=== PATIENT | male | born 1945 | race Caucasian/White ===

== ENCOUNTER → 2017-09-26 | Outpatient (CLI) | payer MEDICARE, BC ==
[~2017-09-26] MED LIST: ASPI325 PO; ATOR20 PO; Ativan1 MG SL; BIMA.03OPS OD; BUTRANS1 EAC1 TD; BYDUREON P2 MG/0.65 SC; Bactrim Ds Tab1 EACH PO; CEPH500 PO; Coenzyme Q10200 M2 PO; DOCU100 PO; DONE10 PO; DULO30 PO; DULO60 PO; ELIQUIS5 MG PO; ENAL20 PO; ERGO50000 PO; FENOFIBRIC ACI135 MG PO; FISH1000 PO; FLUD.1 PO; FLUO10 PO; FLUO20 PO; Fluoxetine HCl20 M1 PO; HYDACE10B PO; HYDMETSO BOTHEYES; INSU100I6 SC; LAMICTAL XR200 MG PO; LAMO100 PO; LATA.005SO BOTHEYES; LAVAP17G PO; LEVEMIR FL100 UNIT/1 SC; LEVFLO500 PO; LORA1 PO; LOSA50 PO; LOVA40 PO; METF500 PO; METFORMIN HCL1000 MG PO; METO100ER PO; METO25ER; NYST100SU; Novolog Fl100 UNIT/1 SC; OXYC10TA19 PO; POTA10T PO; PROBIOTIC250 MG PO; PROP60 PO; PROP80ER PO; Prozac20 MG PO; ROSU10TA PO; TOUJEO SOL300 UNIT/1 SC; VITAMIN D35000 UNIT PO; Zyprexa15 MG PO
[2017-09-26 17:04] LABS: BASOPHILS ABSOLUTE AUTO 0.09 K/mm3 (0.00-0.23); BASOPHILS PERCENT AUTO 1 % (0-2); EOSINOPHILS ABSOLUTE AUTO 1.32 K/mm3 (0.00-0.68); EOSINOPHILS PERCENT AUTO 13 % (0-6); Hematocrit 41.7 % (37.0-53.0); Hemoglobin 13.9 g/dL (13.5-17.5); IMMATURE GRAN PERCENT AUTO 1 % (0-1); LYMPHOCYTES ABSOLUTE AUTO 3.84 K/mm3 (0.84-5.20); LYMPHOCYTES PERCENT AUTO 37 % (21-46); MONOCYTES ABSOLUTE AUTO 0.81 K/mm3 (0.16-1.47); MONOCYTES PERCENT AUTO 8 % (4-13); Mean Corpuscular HGB 30.8 pg (26.0-34.0); Mean Corpuscular HGB Conc 33.3 g/dL (31.5-36.5); Mean Corpuscular Volume 92 fL (80-100); Mean Platelet Volume 8.5 fL (9.1-12.4); NEUTROPHILS ABSOLUTE AUTO 4.24 K/mm3 (1.96-9.15); NEUTROPHILS PERCENT AUTO 41 % (41-73); Platelet Count 410 K/mm3 (150-400); RDW Coefficient Variation 13.8 % (11.7-14.2); RDW Standard Deviation 47.1 fL (35.1-46.3); Red Blood Cell Count 4.52 M/mm3 (4.30-5.90)
[2017-09-26 17:14] LABS: Alanine Aminotransfer (ALT/SGP 45 U/L (12-78); Albumin, Blood 3.6 g/dL (3.4-5.0); Albumin/Globulin Ratio 0.9 (0.8-1.8); Alk Phos 32 U/L (40-126); Anion Gap 8 mmol/L (6-16); Aspartate Aminotrans (AST/SGOT 45 U/L (12-37); Bilirubin, Total 0.3 mg/dL (0.1-1.0); Blood Urea Nitrogen 19 mg/dL (8-24); Bun/Creatinine Ratio 17.4 (12.0-20.0); CO2, Blood 24 mmol/L (21-32); Calcium, Blood 9.3 mg/dL (8.5-10.1); Chloride, Blood 107 mmol/L (98-108); Creatinine, Blood 1.09 mg/dL (0.60-1.20); Globulin, Blood 3.9 g/dL (2.2-4.0); Glomerular Filtration Rate >60 (60-); Glucose, Blood 170 mg/dL (70-99); Potassium, Blood 4.7 mmol/L (3.5-5.5); Sodium, Blood 139 mmol/L (136-145); Total Protein, Blood 7.5 g/dL (6.4-8.2)
== END | disposition home or self-care (01) ==
LOC: LAB SHORT 16:58 → LAB EV 16:58
PROVIDERS: Physician Assistant
DX: E11.9 Type 2 diabetes mellitus without complications (principal); R60.0 Localized edema
CPT/HCPCS: 80053; 83880; 85025

== ENCOUNTER 2017-11-24 12:01 | Inpatient (IN) | payer MEDICARE, BC ==
[~2017-11-24] VITALS: Ht 177.8 cm; Wt 101.4 kg
[~2017-11-24 12:01] MED LIST changes: -BYDUREON P2 MG/0.65 SC; -Bactrim Ds Tab1 EACH PO; -CEPH500 PO; -ELIQUIS5 MG PO; -LEVFLO500 PO; -LORA1 PO; -PROBIOTIC250 MG PO; -TOUJEO SOL300 UNIT/1 SC
[2017-11-24] MEDS ORDERED: BYDUREON P2 MG/0.65 SC (12:18)
[2017-11-24] MEDS ORDERED: LORA1 PO (12:20)
[2017-11-24] MEDS ORDERED: LEVFLO500 PO (12:22)
[2017-11-24] MEDS ORDERED: Bactrim Ds Tab1 EACH PO (12:22)
[2017-11-24] MEDS ORDERED: TOUJEO SOL300 UNIT/1 SC (12:31)
[2017-11-24 13:02] LABS: BASOPHILS ABSOLUTE AUTO 0.07 K/mm3 (0.00-0.23); BASOPHILS PERCENT AUTO 1 % (0-2); EOSINOPHILS ABSOLUTE AUTO 0.43 K/mm3 (0.00-0.68); EOSINOPHILS PERCENT AUTO 4 % (0-6); Hemoglobin 13.2 g/dL (13.5-17.5); IMMATURE GRAN ABSOLUTE AUTO 0.07 K/mm3 (0.00-0.10); IMMATURE GRAN PERCENT AUTO 1 % (0-1); LYMPHOCYTES ABSOLUTE AUTO 2.69 K/mm3 (0.84-5.20); LYMPHOCYTES PERCENT AUTO 22 % (21-46); MONOCYTES ABSOLUTE AUTO 1.04 K/mm3 (0.16-1.47); MONOCYTES PERCENT AUTO 8 % (4-13); Mean Corpuscular HGB 30.6 pg (26.0-34.0); Mean Corpuscular HGB Conc 33.8 g/dL (31.5-36.5); Mean Corpuscular Volume 91 fL (80-100); Mean Platelet Volume 8.5 fL (9.1-12.4); NEUTROPHILS ABSOLUTE AUTO 8.15 K/mm3 (1.96-9.15); NEUTROPHILS PERCENT AUTO 65 % (41-73); Platelet Count 301 K/mm3 (150-400); RDW Coefficient Variation 12.6 % (11.7-14.2); RDW Standard Deviation 41.9 fL (35.1-46.3); Red Blood Cell Count 4.31 M/mm3 (4.30-5.90); White Blood Cell Count 12.45 K/mm3 (4.00-11.30)
[2017-11-24 13:18] LABS: Alanine Aminotransfer (ALT/SGP 39 U/L (12-78); Albumin, Blood 3.1 g/dL (3.4-5.0); Albumin/Globulin Ratio 0.7 (0.8-1.8); Alk Phos 30 U/L (50-136); Anion Gap 10 mmol/L (6-16); Aspartate Aminotrans (AST/SGOT 23 U/L (12-37); Bilirubin, Total 0.2 mg/dL (0.1-1.0); Blood Urea Nitrogen 15 mg/dL (8-24); Bun/Creatinine Ratio 15.1 (12.0-20.0); CO2, Blood 21 mmol/L (21-32); Calcium, Blood 9.1 mg/dL (8.5-10.1); Chloride, Blood 105 mmol/L (98-108); Globulin, Blood 4.2 g/dL (2.2-4.0); Glomerular Filtration Rate >60 (60-); Glucose, Blood 219 mg/dL (70-99); Potassium, Blood 4.3 mmol/L (3.5-5.5); Sodium, Blood 136 mmol/L (136-145); Total Protein, Blood 7.3 g/dL (6.4-8.2)
[2017-11-25 05:59] LABS: BASOPHILS ABSOLUTE AUTO 0.07 K/mm3 (0.00-0.23); BASOPHILS PERCENT AUTO 1 % (0-2); EOSINOPHILS ABSOLUTE AUTO 0.75 K/mm3 (0.00-0.68); EOSINOPHILS PERCENT AUTO 8 % (0-6); Hematocrit 37.4 % (37.0-53.0); Hemoglobin 12.5 g/dL (13.5-17.5); IMMATURE GRAN ABSOLUTE AUTO 0.13 K/mm3 (0.00-0.10); IMMATURE GRAN PERCENT AUTO 1 % (0-1); LYMPHOCYTES PERCENT AUTO 32 % (21-46); MONOCYTES PERCENT AUTO 9 % (4-13); Mean Corpuscular HGB 30.2 pg (26.0-34.0); Mean Corpuscular HGB Conc 33.4 g/dL (31.5-36.5); Mean Corpuscular Volume 90 fL (80-100); Mean Platelet Volume 8.6 fL (9.1-12.4); NEUTROPHILS ABSOLUTE AUTO 4.53 K/mm3 (1.96-9.15); NEUTROPHILS PERCENT AUTO 49 % (41-73); Platelet Count 304 K/mm3 (150-400); RDW Coefficient Variation 12.7 % (11.7-14.2); RDW Standard Deviation 41.8 fL (35.1-46.3); Red Blood Cell Count 4.14 M/mm3 (4.30-5.90); White Blood Cell Count 9.18 K/mm3 (4.00-11.30)
[2017-11-25 06:20] LABS: Alanine Aminotransfer (ALT/SGP 30 U/L (12-78); Albumin, Blood 3.1 g/dL (3.4-5.0); Albumin/Globulin Ratio 0.8 (0.8-1.8); Alk Phos 26 U/L (50-136); Anion Gap 10 mmol/L (6-16); Aspartate Aminotrans (AST/SGOT 22 U/L (12-37); Bilirubin, Total 0.3 mg/dL (0.1-1.0); Blood Urea Nitrogen 12 mg/dL (8-24); Bun/Creatinine Ratio 12.1 (12.0-20.0); CO2, Blood 23 mmol/L (21-32); CPK Creatine Kinase 182 U/L (39-308); Calcium, Blood 8.7 mg/dL (8.5-10.1); Chloride, Blood 106 mmol/L (98-108); Creatinine, Blood 0.99 mg/dL (0.60-1.20); Globulin, Blood 3.8 g/dL (2.2-4.0); Glomerular Filtration Rate >60 (60-); Glucose, Blood 134 mg/dL (70-99); Magnesium, Blood 1.8 mg/dL (1.6-2.4); Phosphorus, Blood 3.7 mg/dL (2.5-4.9); Sodium, Blood 139 mmol/L (136-145); Total Protein, Blood 6.9 g/dL (6.4-8.2)
[2017-11-25 19:46] LABS: Vancomycin, Trough 11.7 ug/mL (5.0-10.0)
[2017-11-26] MEDS ORDERED: DOCU100 PO (15:49)
[2017-11-26] MEDS ORDERED: CEPH500 PO (15:50)
[2017-11-26] MEDS ORDERED: ELIQUIS5 MG PO (15:51)
[2017-11-26] MEDS ORDERED: PROBIOTIC250 MG PO (15:51)
== END 2017-11-26 16:23 | disposition home or self-care (01) | DRG 872 ==
LOC: ER 12:01 → MEDS 15:32
PROVIDERS: Emergency Medicine; Hospitalist
PROC: 3E0234Z Introduction of Serum, Toxoid and Vaccine into Muscle, Percutaneous Approach (ICD-10-PCS; principal; 2017-11-25)
DX: A41.9 Sepsis, unspecified organism (principal); L03.115 Cellulitis of right lower limb; G21.19 Other drug induced secondary parkinsonism; I74.5 Embolism and thrombosis of iliac artery; I72.3 Aneurysm of iliac artery; R60.0 Localized edema; E11.9 Type 2 diabetes mellitus without complications; E78.5 Hyperlipidemia, unspecified; F31.9 Bipolar disorder, unspecified; G47.33 Obstructive sleep apnea (adult) (pediatric); I10 Essential (primary) hypertension; Z66 Do not resuscitate; E66.9 Obesity, unspecified; Z68.34 Body mass index [BMI] 34.0-34.9, adult; Z23 Encounter for immunization
CPT/HCPCS: 36415; 71046; 73630; 73701; 74177; 80053; 80202; 82550; 82947; 83605; 83735; 84100; 85025; 85651; 86140; 87040; 93005; 93010; 96361; 96374; 96375; 97161; 99285; G8978; G8979; G8980; J0690; J1650; J1815; J2405; J3010; J3370; J7030; J7050; Q9967

== ENCOUNTER → 2018-01-12 | Outpatient (CLI) | payer MEDICARE, BC ==
[~2018-01-12] MED LIST changes: +BYDUREON P2 MG/0.65 SC; +Bactrim Ds Tab1 EACH PO; +CEPH500 PO; +ELIQUIS5 MG PO; +LEVFLO500 PO; +LORA1 PO; +PROBIOTIC250 MG PO; +TOUJEO SOL300 UNIT/1 SC
[2018-01-12 12:24] LABS: BASOPHILS ABSOLUTE AUTO 0.07 K/mm3 (0.00-0.23); BASOPHILS PERCENT AUTO 1 % (0-2); EOSINOPHILS ABSOLUTE AUTO 1.02 K/mm3 (0.00-0.68); EOSINOPHILS PERCENT AUTO 12 % (0-6); Hematocrit 42.3 % (37.0-53.0); Hemoglobin 14.2 g/dL (13.5-17.5); IMMATURE GRAN ABSOLUTE AUTO 0.05 K/mm3 (0.00-0.10); IMMATURE GRAN PERCENT AUTO 1 % (0-1); LYMPHOCYTES ABSOLUTE AUTO 3.13 K/mm3 (0.84-5.20); LYMPHOCYTES PERCENT AUTO 36 % (21-46); MONOCYTES ABSOLUTE AUTO 0.56 K/mm3 (0.16-1.47); MONOCYTES PERCENT AUTO 6 % (4-13); Mean Corpuscular HGB 30.2 pg (26.0-34.0); Mean Corpuscular HGB Conc 33.6 g/dL (31.5-36.5); Mean Corpuscular Volume 90 fL (80-100); Mean Platelet Volume 8.6 fL (9.1-12.4); NEUTROPHILS ABSOLUTE AUTO 3.92 K/mm3 (1.96-9.15); NEUTROPHILS PERCENT AUTO 45 % (41-73); Platelet Count 344 K/mm3 (150-400); RDW Coefficient Variation 12.9 % (11.7-14.2); RDW Standard Deviation 42.7 fL (35.1-46.3); White Blood Cell Count 8.75 K/mm3 (4.00-11.30)
[2018-01-12 12:36] LABS: Albumin, Blood 3.7 g/dL (3.4-5.0); Bilirubin, Total 0.3 mg/dL (0.1-1.0); Bun/Creatinine Ratio 13.6 (12.0-20.0); Calcium, Blood 9.1 mg/dL (8.5-10.1); Creatinine, Blood 1.25 mg/dL (0.60-1.20); Globulin, Blood 3.7 g/dL (2.2-4.0); Potassium, Blood 4.5 mmol/L (3.5-5.5); Total Protein, Blood 7.4 g/dL (6.4-8.2)
== END ==
LOC: LAB SHORT 12:15 → LAB EV 12:15
PROVIDERS: General Practice
DX: L29.9 Pruritus, unspecified (principal)
CPT/HCPCS: 80053; 85025

== ENCOUNTER 2019-03-17 20:51 | Emergency (ER) | payer MEDICARE, BC ==
[~2019-03-17] VITALS: Ht 177.8 cm; Wt 117.9 kg
[2019-03-17 21:50] LABS: BASOPHILS PERCENT AUTO 1 % (0-2); EOSINOPHILS ABSOLUTE AUTO 0.89 K/mm3 (0.00-0.68); EOSINOPHILS PERCENT AUTO 8 % (0-6); Hemoglobin 15.2 g/dL (13.5-17.5); IMMATURE GRAN ABSOLUTE AUTO 0.22 K/mm3 (0.00-0.10); IMMATURE GRAN PERCENT AUTO 2 % (0-1); LYMPHOCYTES ABSOLUTE AUTO 4.13 K/mm3 (0.84-5.20); LYMPHOCYTES PERCENT AUTO 36 % (21-46); MONOCYTES ABSOLUTE AUTO 0.78 K/mm3 (0.16-1.47); MONOCYTES PERCENT AUTO 7 % (4-13); Mean Corpuscular HGB Conc 32.3 g/dL (31.5-36.5); Mean Corpuscular Volume 93 fL (80-100); Mean Platelet Volume 8.7 fL (9.1-12.4); NEUTROPHILS ABSOLUTE AUTO 5.24 K/mm3 (1.96-9.15); NEUTROPHILS PERCENT AUTO 46 % (41-73); Platelet Count 346 K/mm3 (150-400); RDW Coefficient Variation 12.9 % (11.7-14.2); RDW Standard Deviation 44.1 fL (35.1-46.3); Red Blood Cell Count 5.06 M/mm3 (4.30-5.90); White Blood Cell Count 11.36 K/mm3 (4.00-11.30)
[2019-03-17 22:10] LABS: Alanine Aminotransfer (ALT/SGP 60 U/L (12-78); Albumin, Blood 3.8 g/dL (3.4-5.0); Albumin/Globulin Ratio 0.8 (0.8-1.8); Alk Phos 39 U/L (50-136); Anion Gap 9 mmol/L (6-16); Aspartate Aminotrans (AST/SGOT 53 U/L (12-37); Bilirubin, Total 0.2 mg/dL (0.1-1.0); Blood Urea Nitrogen 20 mg/dL (8-24); Bun/Creatinine Ratio 19.6 (12.0-20.0); CO2, Blood 25 mmol/L (21-32); Calcium, Blood 9.4 mg/dL (8.5-10.1); Chloride, Blood 102 mmol/L (98-108); Creatinine, Blood 1.02 mg/dL (0.60-1.20); Globulin, Blood 4.6 g/dL (2.2-4.0); Glomerular Filtration Rate >60 (60-); Glucose, Blood 265 mg/dL (70-99); Potassium, Blood 4.1 mmol/L (3.5-5.5); Sodium, Blood 136 mmol/L (136-145); Total Protein, Blood 8.4 g/dL (6.4-8.2)
== END 2019-03-17 23:29 | disposition home or self-care (01) ==
LOC: ER 20:51
PROVIDERS: Physician Assistant
DX: K59.00 Constipation, unspecified (principal); Z79.899 Other long term (current) drug therapy; Z79.4 Long term (current) use of insulin; F31.9 Bipolar disorder, unspecified; E11.9 Type 2 diabetes mellitus without complications; I10 Essential (primary) hypertension; E78.5 Hyperlipidemia, unspecified
CPT/HCPCS: 74176; 80053; 83690; 85025; 99284-25

== ENCOUNTER 2019-07-29 09:15 | Day surgery (SDC) | payer MEDICARE, BC ==
[~2019-07-29] VITALS: Ht 177.8 cm; Wt 115.1 kg
[~2019-07-29 09:15] MED LIST changes: +AMIT50 PO; +ARTIFICIAL TEAR15 M2 OP; +Ativan1 MG PO; +BYDUREON B2 MG/0.85 SC; +FLUTICASONE-SA1 EAC1; +FURO40 PO; +Fish Oil 10001000 MG PO; +JARDIANCE10 MG PO; +K-TAB ER20 ME1 PO; +LATANOPROST2.5 M1 BOTHEYES; +Lipitor20 MG PO; +Metformin HCl1000 MG PO; +NOVOLOG100 UNIT/1 SC; +OLAN20 MM; +OXYC10ER PO; +TAMS.4ER PO; +TEMOVATE15 G1; +TOUJEO MAX300 UNIT/1 SC
== END 2019-07-29 11:52 | disposition home or self-care (01) ==
LOC: ORSCSDS 09:15
PROVIDERS: Internal Medicine Gastroenterology
PROC: 0DBL8ZX Excision of Transverse Colon, Via Natural or Artificial Opening Endoscopic, Diagnostic (ICD-10-PCS; principal; 2019-07-29 10:30)
PROC: 0DBK8ZX Excision of Ascending Colon, Via Natural or Artificial Opening Endoscopic, Diagnostic (ICD-10-PCS; principal; 2019-07-29 10:30)
DX: Z12.11 Encounter for screening for malignant neoplasm of colon (principal); Z86.010 Personal history of colon polyps; D12.2 Benign neoplasm of ascending colon; D12.3 Benign neoplasm of transverse colon; K57.30 Diverticulosis of large intestine without perforation or abscess without bleeding; K64.8 Other hemorrhoids; I10 Essential (primary) hypertension; E11.9 Type 2 diabetes mellitus without complications; G47.33 Obstructive sleep apnea (adult) (pediatric); E78.5 Hyperlipidemia, unspecified; E66.01 Morbid (severe) obesity due to excess calories; Z68.36 Body mass index [BMI] 36.0-36.9, adult; Z79.4 Long term (current) use of insulin; Z79.899 Other long term (current) drug therapy; Z87.891 Personal history of nicotine dependence
CPT/HCPCS: 82947; 88305; J2704

== ENCOUNTER → 2020-09-08 | Outpatient (CLI) | payer MEDICARE, BC ==
[~2020-09-08] MED LIST changes: +ARTIFICIAL TEAR15 M2 BOTHEYES; +FENO145 PO; +FENO67 PO; +GABA300 PO; +METAMUCIL POWD575 GM PO; +MIRALAX17 GM PO; -Metformin HCl1000 MG PO; +NYAMYC15 G1 TOP; +POTCHL20ER PO; +TRULICITY1.5 MG/0.1 SC; +VRAYLAR1.5 MG PO
[2020-09-08 15:31] LABS: BASOPHILS ABSOLUTE AUTO 0.04 K/mm3 (0.00-0.23); BASOPHILS PERCENT AUTO 0 % (0-2); EOSINOPHILS ABSOLUTE AUTO 0.04 K/mm3 (0.00-0.68); EOSINOPHILS PERCENT AUTO 0 % (0-6); Hematocrit 49.1 % (37.0-53.0); Hemoglobin 16.2 g/dL (13.5-17.5); IMMATURE GRAN ABSOLUTE AUTO 0.08 K/mm3 (0.00-0.10); IMMATURE GRAN PERCENT AUTO 1 % (0-1); LYMPHOCYTES ABSOLUTE AUTO 2.74 K/mm3 (0.84-5.20); LYMPHOCYTES PERCENT AUTO 27 % (21-46); MONOCYTES ABSOLUTE AUTO 0.67 K/mm3 (0.16-1.47); MONOCYTES PERCENT AUTO 7 % (4-13); Mean Corpuscular HGB 29.9 pg (26.0-34.0); Mean Corpuscular Volume 91 fL (80-100); Mean Platelet Volume 8.4 fL (9.1-12.4); NEUTROPHILS ABSOLUTE AUTO 6.51 K/mm3 (1.96-9.15); NEUTROPHILS PERCENT AUTO 65 % (41-73); Platelet Count 411 K/mm3 (150-400); RDW Coefficient Variation 14.6 % (11.7-14.2); RDW Standard Deviation 48.6 fL (35.1-46.3); Red Blood Cell Count 5.42 M/mm3 (4.30-5.90); White Blood Cell Count 10.08 K/mm3 (4.00-11.30)
== END | disposition home or self-care (01) ==
LOC: LAB EV 15:23 → LAB SHORT 15:23
PROVIDERS: Physician Assistant
DX: K14.0 Glossitis (principal)
CPT/HCPCS: 82607; 82746; 85025

== ENCOUNTER 2020-11-17 08:25 | Day surgery (SDC) | payer MEDICARE, BC ==
[~2020-11-17] VITALS: Ht 177.8 cm; Wt 100.0 kg
[~2020-11-17 08:25] MED LIST changes: -FENO67 PO; -GABA300 PO; -POTCHL20ER PO; -VRAYLAR1.5 MG PO
[2020-11-17] MEDS ORDERED: FENO67 PO (09:49)
[2020-11-17] MEDS ORDERED: POTCHL20ER PO (10:08)
[2020-11-17] MEDS ORDERED: GABA300 PO (10:09)
[2020-11-17] MEDS ORDERED: VRAYLAR1.5 MG PO (10:09)
--- NOTE | 2020-11-17 16:49 | NUR ---
PT UP TO BATHROOM, R GROIN SITE STABLE. PT GETTING DRESSED PER SELF AT THIS TIME.
--- NOTE | 2020-11-17 17:10 | NUR ---
PT DRESSED, GROIN SITE STABLE. DISCHARGE GONE OVER WITH PT, VERBALIZES UNDERSATNDING. SALINE LOCK OUT WITH CATHETER INTACT. PT TO PRIVATE VEHICLE PER W/C WITH ONE STAFF.
== END 2020-11-17 23:35 | disposition home or self-care (01) ==
LOC: MHTC 08:25
DX: I70.212 Atherosclerosis of native arteries of extremities with intermittent claudication, left leg (principal)
CPT/HCPCS: 36246; 75625; 75716; 75774; 82947; 93005; 93010; 99152; 99153; C1760; C1769; C1887; C1894; J1644; J2250; J3010; J7030; J7050; Q9967

== ENCOUNTER 2022-02-21 20:57 | Inpatient (IN) | payer MEDICARE, BC ==
[~2022-02-21] VITALS: Ht 177.8 cm; Wt 99.2 kg
[~2022-02-21 20:57] MED LIST changes: +FENO67 PO; -Fish Oil 10001000 MG PO; +Fish Oil PO; +GABA300 PO; +POTCHL20ER PO; +VRAYLAR1.5 MG PO; +Vitamin D3 PO
[2022-02-21 21:18] LABS: BASOPHILS ABSOLUTE AUTO 0.13 K/mm3 (0.00-0.23); BASOPHILS PERCENT AUTO 1 % (0-2); EOSINOPHILS ABSOLUTE AUTO 0.37 K/mm3 (0.00-0.68); EOSINOPHILS PERCENT AUTO 3 % (0-6); Hematocrit 39.7 % (37.0-53.0); IMMATURE GRAN PERCENT AUTO 1 % (0-1); LYMPHOCYTES ABSOLUTE AUTO 3.26 K/mm3 (0.84-5.20); LYMPHOCYTES PERCENT AUTO 23 % (21-46); MONOCYTES ABSOLUTE AUTO 0.84 K/mm3 (0.16-1.47); MONOCYTES PERCENT AUTO 6 % (4-13); Mean Corpuscular HGB 30.2 pg (26.0-34.0); Mean Corpuscular HGB Conc 32.7 g/dL (31.5-36.5); Mean Corpuscular Volume 92 fL (80-100); Mean Platelet Volume 8.8 fL (9.1-12.4); NEUTROPHILS ABSOLUTE AUTO 9.51 K/mm3 (1.96-9.15); NEUTROPHILS PERCENT AUTO 66 % (41-73); Platelet Count 393 K/mm3 (150-400); RDW Coefficient Variation 14.5 % (11.7-14.2); RDW Standard Deviation 49.2 fL (35.1-46.3); Red Blood Cell Count 4.31 M/mm3 (4.30-5.90); White Blood Cell Count 14.31 K/mm3 (4.00-11.30)
[2022-02-21 21:36] LABS: Albumin, Blood 3.3 g/dL (3.4-5.0); Albumin/Globulin Ratio 0.9 (0.8-1.8); Bilirubin, Total 0.4 mg/dL (0.1-1.0); Bun/Creatinine Ratio 33.1 (12.0-20.0); Calcium, Blood 8.8 mg/dL (8.5-10.1); Creatinine, Blood 1.21 mg/dL (0.60-1.20); Globulin, Blood 3.6 g/dL (2.2-4.0); Total Protein, Blood 6.9 g/dL (6.4-8.2)
[2022-02-22] MEDS ORDERED: METO25ER PO (02:30)
[2022-02-22] MEDS ORDERED: VRAYLAR3 MG PO (02:32)
[2022-02-22] MEDS ORDERED: FLUO10 PO (02:33)
[2022-02-22 04:48] LABS: BASOPHILS ABSOLUTE AUTO 0.13 K/mm3 (0.00-0.23); BASOPHILS PERCENT AUTO 1 % (0-2); EOSINOPHILS ABSOLUTE AUTO 0.13 K/mm3 (0.00-0.68); EOSINOPHILS PERCENT AUTO 1 % (0-6); Hemoglobin 11.7 g/dL (13.5-17.5); Mean Corpuscular HGB 29.8 pg (26.0-34.0); Mean Corpuscular HGB Conc 32.5 g/dL (31.5-36.5); Mean Corpuscular Volume 92 fL (80-100); Mean Platelet Volume 8.9 fL (9.1-12.4); Platelet Count 439 K/mm3 (150-400); RDW Coefficient Variation 14.6 % (11.7-14.2); RDW Standard Deviation 48.7 fL (35.1-46.3); Red Blood Cell Count 3.92 M/mm3 (4.30-5.90); White Blood Cell Count 18.74 K/mm3 (4.00-11.30)
[2022-02-22 04:50] LABS: IMMATURE GRAN ABSOLUTE AUTO 0.28 K/mm3 (0.00-0.10); IMMATURE GRAN PERCENT AUTO 2 % (0-1); LYMPHOCYTES ABSOLUTE AUTO 5.34 K/mm3 (0.84-5.20); LYMPHOCYTES PERCENT AUTO 29 % (21-46); MONOCYTES PERCENT AUTO 6 % (4-13); NEUTROPHILS ABSOLUTE AUTO 11.66 K/mm3 (1.96-9.15); NEUTROPHILS PERCENT AUTO 62 % (41-73)
[2022-02-22 05:08] LABS: Albumin, Blood 3.3 g/dL (3.4-5.0); Albumin/Globulin Ratio 0.9 (0.8-1.8); Bilirubin, Total 0.7 mg/dL (0.1-1.0); Bun/Creatinine Ratio 47.4 (12.0-20.0); Calcium, Blood 9.1 mg/dL (8.5-10.1); Creatinine, Blood 1.14 mg/dL (0.60-1.20); Globulin, Blood 3.5 g/dL (2.2-4.0); Potassium, Blood 4.1 mmol/L (3.5-5.5); Total Protein, Blood 6.8 g/dL (6.4-8.2)
--- NOTE | 2022-02-22 05:48 | NUR ---
SHIFT SUMMARY PT ARRIVED FROM ED TO THE ROOM HE HAS FELT WAVES OF ABDOMINAL CRAMPING OFF AND ON AND HAS HAD SEVERAL EPISODES OF VOMITING AND DIARRHEA. DR WAS NOTIFIED PT HAD A SUDDEN CHANGE IN VITALS SBP DROPPING 35 POINTS, HR GOING TO 135, FEELING COLD AND CLAMMY AND LIKE THE ROOM WAS SPINNING. 500 CC BOOLUS ORDERED AND PT FELT SLIGHTLY BETTER AFTER, BUT CONTINUED TO VOMIT COFFEE GROUND EMESIS. GI CONSULTED BY ED . BED IN LOWEST POSITION AND CALL LIGHT IN REACH
--- NOTE | 2022-02-22 07:47 | NUR ---
UPDATE: This RN received report from medical floor RN. Pt still on medical floor as room is being cleaned. Dr Antony called and updated on pt status and this RN's concern for hypovolemic shock. Stat type and screen ordered.
--- NOTE | 2022-02-22 07:50 | NUR ---
pt laying in bed awake a/ox3, slow, in room, denies pain, lungs are course t/o, resp even and unlabord, no cough noted, currently on4 liters o2 via n/c, hrr, iv x2 to lac and lwrist, protonix gtt infusing as ordered, bolus started for low b/p, btx4, abd round soft nontender, voids without diff, skin c/w/ diaphoretic, maew, john, call light in reach. explained to him and spouce he will transfer to icu, call light in reach.
--- NOTE | 2022-02-22 08:10 | NUR ---
pt in transport to icu, report was given by night RN.
--- NOTE | 2022-02-22 08:17 | NUR ---
TRANSFER: Pt arrived to ICU at 0813. Lab called to collect stat labs
--- NOTE | 2022-02-22 08:26 | NUR ---
PROVIDER UPDATE: Dr Antony called and updated on pt arrival to unit. Notified that labs have not yet been drawn. Discussed pts symptoms of hypotension, diaphoresis, pale skin, dizziness. Telephone order for one unit PRBC.
[2022-02-22 09:12] LABS: Hematocrit 33.5 % (37.0-53.0); Hemoglobin 10.6 g/dL (13.5-17.5)
[2022-02-22 10:40] LABS: Hematocrit 32.9 % (37.0-53.0); Hemoglobin 10.3 g/dL (13.5-17.5)
--- NOTE | 2022-02-22 11:05 | NUR ---
PROCEDURE: OR staff and anesthesia at bedside preparing for upper endoscopy. Plan to intubate pt for this procedure. 1108: time out 1109: 1mg of versed through L wrist IV 1110: 1mg of versed 11:11 anesthesia induction with ketamine - see anesthesia report for medications administered 11:12 intubated with 8.0 at 25cm at teeth with positive color change, bilateral breath sounds 11:20 endoscopy initiated 11:29 multiple ulcers in the duodenum identified 11:[address] Huffman to infuse second unit of PRBC
--- NOTE | 2022-02-22 13:13 | NUR ---
02/22/22 1313 Terrell Burroughs History, Chart, Medications and Allergies reviewed before start of procedure.MONITOR INTACT WITH CONTINUOUS PULSE OXIMETRY AND INTERMITTENT BP.3-LEAD EKG REVIEWED WITH PHYSICIAN PRIOR TO START OF PROCEDURE.DR DUNHAM WILL INTUBATE PATIENT WITH RESPIRATORY THERAPY ASSISTANCE.See Anesthesia record.
[2022-02-22 16:14] LABS: Hematocrit 35.1 % (37.0-53.0); Hemoglobin 11.7 g/dL (13.5-17.5)
--- NOTE | 2022-02-22 18:17 | NUR ---
SHIFT SUMMARY: Pt arrived to ICU this morning at 0813. He received a total of 2 units PRBC. Upper endoscopy completed and pt received six clips in his duodenum for multiple bleeding ulcers. He was intubated for the procedure after he had a bout of black emesis totaling 800mls. Pt was extubated to room air without complication at 1300. Since then, pt has been eating ice chips and notes that he is "feeling much better." His was updated and RN asked her to bring in pt's Vraylar next time she comes in.
--- NOTE | 2022-02-22 19:35 | NUR ---
ASSESSMENT/ASSUMED CARE PT SITTING UP IN BED WATCHING TV. A&O. DENIES PAIN, STATES,"I FEEL MUCH BETTER NOW". LUNGS CLEAR ON ROOMAIR. RESP EVEN AND NONLABORED. DENIES SOB OR COUGH. HEART RATE REGULAR 90-100'S. BP STABLE. NO EDEMA. MAEW. SKIN WARM AND DRY. BT+ ABD ROUND, OBESE, NONTENDER EXCEPT LEFT LOWER QUAD. PT STATES,"STILL A LITTLE TENDER THERE BUT MUCH IMPROVED". IV 20G TO LEFT AC SALINE LOCKED, FLUSHED WITHOUT DIFFICULTY, SITE CLEAR. IV 22G TO LEFT HAND/WRIST WITH PROTONIX AT 10 ML/HR AND NS AT 10 ML/HR. SITE CLEAR. PT DENIES N/V AT THIS TIME. TAKING ICE CHIPS.
[2022-02-22 22:09] LABS: Hematocrit 33.1 % (37.0-53.0); Hemoglobin 10.8 g/dL (13.5-17.5)
[2022-02-23 04:05] LABS: BASOPHILS ABSOLUTE AUTO 0.12 K/mm3 (0.00-0.23); BASOPHILS PERCENT AUTO 1 % (0-2); EOSINOPHILS ABSOLUTE AUTO 0.18 K/mm3 (0.00-0.68); EOSINOPHILS PERCENT AUTO 1 % (0-6); Hematocrit 33.2 % (37.0-53.0); Hemoglobin 10.7 g/dL (13.5-17.5); IMMATURE GRAN ABSOLUTE AUTO 0.18 K/mm3 (0.00-0.10); IMMATURE GRAN PERCENT AUTO 1 % (0-1); LYMPHOCYTES ABSOLUTE AUTO 3.54 K/mm3 (0.84-5.20); LYMPHOCYTES PERCENT AUTO 26 % (21-46); MONOCYTES ABSOLUTE AUTO 1.01 K/mm3 (0.16-1.47); MONOCYTES PERCENT AUTO 7 % (4-13); Mean Corpuscular HGB 30.5 pg (26.0-34.0); Mean Corpuscular HGB Conc 32.2 g/dL (31.5-36.5); Mean Corpuscular Volume 95 fL (80-100); Mean Platelet Volume 8.9 fL (9.1-12.4); NEUTROPHILS ABSOLUTE AUTO 8.53 K/mm3 (1.96-9.15); NEUTROPHILS PERCENT AUTO 63 % (41-73); Platelet Count 292 K/mm3 (150-400); RDW Coefficient Variation 15.4 % (11.7-14.2); RDW Standard Deviation 53.3 fL (35.1-46.3); Red Blood Cell Count 3.51 M/mm3 (4.30-5.90); White Blood Cell Count 13.56 K/mm3 (4.00-11.30)
[2022-02-23 04:26] LABS: Albumin, Blood 3.2 g/dL (3.4-5.0); Bilirubin, Total 0.5 mg/dL (0.1-1.0); Bun/Creatinine Ratio 48.5 (12.0-20.0); Calcium, Blood 8.4 mg/dL (8.5-10.1); Creatinine, Blood 1.01 mg/dL (0.60-1.20); Globulin, Blood 3.1 g/dL (2.2-4.0); Magnesium, Blood 2.2 mg/dL (1.6-2.4); Phosphorus, Blood 2.5 mg/dL (2.5-4.9); Potassium, Blood 3.7 mmol/L (3.5-5.5); Total Protein, Blood 6.3 g/dL (6.4-8.2)
--- NOTE | 2022-02-23 06:15 | NUR ---
SHIFT SUMMARY PT RESTING QUIETLY AT THIS TIME. MOVING SELF IN BED. DENIES PAIN OR DISCOMFORT. PROTONIX GTT INFUSING. HEART RATE 80-90'S. WITH STABLE BP. NO BLEEDING NOTED. ASSISTED WITH URINAL DURING THE NIGHT. BEDPAN TWICE WITHOUT RESULTS. PT STATES, "I'M FEELING A LOT BETTER". H&H THIS AM 10.7/33.2. NO ACUTE CHANGE. REPORT TO ON COMING NURSE
--- NOTE | 2022-02-23 08:15 | NUR ---
PATIENT ALERT AND ORIENTED X 4. AFEBRILE. PATIENT GIVEN PRN TYLENOL FOR COMPLAINTS OF HEADACHE. PATIENT WEAK BUT ABLE TO MOVE ALL EXTREMITIES. PATIENT SATTING 90% AND GREATER ON RA. LUNGS CLEAR THROUGHOUT. PATIENT IN SR WITH BBB. HR 80S TO 90S. SBP 1-TEENS TO 130S. LAST BM DOCUMENTED 02/22. PATIENT DENIES NAUSEA. PATIENT USES URINAL WITH ASSISTANCE. COCCYX REDDENED. PROTONIX INFUSING AT 10 MLS/ HOUR, NS TKO. BED LOW, CALL LIGHT IN REACH. AT BEDSIDE. WILL CONTINUE TO MONITOR THROUGHOUT SHIFT.
--- NOTE | 2022-02-23 09:22 | NUR ---
DR. GRAVES CALLED AND INFORMED THAT PATIENT COMPLAINING OF 3/10 ACHING CHEST PAIN IN MIDDLE OF CHEST AND RADIATING TO BILAT ARMS. INFORMED THAT PATIENT DIAPHORETIC AND TROY SKIN COLOR TO FACE. ORDER RECEIVED FOR STAT EKG, TROPONIN AND CHEST XR. EKG PERFORMED. DR. GRAVES CALLED WITH EKG RESULTS " LEFT ANTERIOR FASCICULAR BLOCK". ORDER FOR NITRO OBTAINED.
--- NOTE | 2022-02-23 12:13 | NUR ---
PATIENT AFEBRILE. HR IN THE 80S. SBP IN THE LOW 100S. NO COMPLAINTS OF HEADACHE OR CHEST PAIN. NO OTHER ACUTE CHANGES TO NOTE ON AT THIS TIME. WILL CONTINUE TO MONITOR.
--- NOTE | 2022-02-23 12:34 | NUR ---
DR. NORIEGA IN ROOM TO SEE PATIENT.
--- NOTE | 2022-02-23 14:30 | NUR ---
DR. PELAYO IN ROOM TO SEE PATIENT.
--- NOTE | 2022-02-23 16:49 | NUR ---
DR. GRAVES INFORMED THAT MED REC HAS BEEN UPDATED.
--- NOTE | 2022-02-23 16:50 | NUR ---
PATIENT AFEBRILE. HR IN THE 70S. SBP 90S TO LOW 100S. PATIENT 1 PERSON ASSIST TO RECLINER. PATIENT HAS NO COMPLAINTS. WILL CONTINUE TO MONITOR.
--- NOTE | 2022-02-23 17:30 | NUR ---
SHIFT SUMMARY PATIENT HAS REMAINED ALERT AND ORIENTED X 4, AFEBRILE. PATIENT GIVEN PRN TYLENOL THIS AM FOR HEADACHE. PATIENT GIVEN PRN NITRO SL FOR COMPLAINTS OF CHEST PAIN THIS AM. STAT EKG, CHEST XR, AND TROPONIN COLLECTED/ PERFORMED. TROPONIN HIGH AT 808. BUFFING AND POLISHING WHEEL REPAIRER CONSULTED. PATIENT HAD NO COMPLAINT OF DIZZINESS OR LIGHTHEADEDNESS. PATIENT 1 PERSON ASSIST TO CHAIR. PATIENT REMAINED SATTING 90% AND GREATER ON RA. PATIENT REMAINED IN SR WITH BBB, HR 70S TO 90S. SBP 90S TO 130S. SCDS PLACED THIS SHIFT. NO BM THIS SHIFT. PATIENT TOLERATED CLEAR LIQUID DIET WELL. NO COMPLAINTS OF NAUSEA THIS SHIFT. GOOD URINE OUTPUT VIA URINAL WITH ASSISTANCE. NO CHANGES TO SKIN NOTED. PROTONIX REMAINS AT 10 MLS/ HOUR AND NS TKO. 15 MM KPHOS GIVEN THIS SHIFT. COMPLETE BED BATH PERFORMED. MED REC COMPLETED AND DR. GRAVES AWARE. BLOOD SUGARS IN THE 100S; NO COVERAGE NEEDED THIS SHIFT. PATIENT HAS NO COMPLAINTS AT THIS TIME. AT SIDE. REPORT GIVEN TO ASSUMING NURSE.
--- NOTE | 2022-02-23 17:57 | NUR ---
SHIFT SUMMARY: ASSUMED CARE AT 1717. PT UP IN RECLINER, AT BEDSIDE. HR IN 80S, NSR WITH BBB. ALERT AND ORIENTED, DENIES NEEDS OR CONCERNS. AMBULATED PT BACK TO BED WITH 1 ASSIST. PROTONIX GTT RUNNING PER ORDERS
--- NOTE | 2022-02-23 21:20 | NUR ---
Assumed Care. AOx3, fatiqued, weak. Denies any pain, cp, dizziness or any other complaints. LS clear. Sats 95% on RA. Sinus at 75, no edema. Abd soft, round, non-tender. no BM. Tolerating clear liquids, no nausea. BT active x4 Clear yellow urine. Urinal at bedside. IVF infusing at tko. Protonix drip. Call light in reach. Will continue to montior.
[2022-02-24 03:38] LABS: BASOPHILS ABSOLUTE AUTO 0.08 K/mm3 (0.00-0.23); BASOPHILS PERCENT AUTO 1 % (0-2); EOSINOPHILS ABSOLUTE AUTO 0.74 K/mm3 (0.00-0.68); EOSINOPHILS PERCENT AUTO 8 % (0-6); Hematocrit 25.3 % (37.0-53.0); Hemoglobin 8.1 g/dL (13.5-17.5); IMMATURE GRAN PERCENT AUTO 1 % (0-1); LYMPHOCYTES ABSOLUTE AUTO 2.87 K/mm3 (0.84-5.20); LYMPHOCYTES PERCENT AUTO 30 % (21-46); MONOCYTES ABSOLUTE AUTO 0.61 K/mm3 (0.16-1.47); MONOCYTES PERCENT AUTO 6 % (4-13); Mean Corpuscular HGB 30.2 pg (26.0-34.0); Mean Corpuscular Volume 94 fL (80-100); NEUTROPHILS PERCENT AUTO 54 % (41-73); Platelet Count 263 K/mm3 (150-400); RDW Coefficient Variation 15.2 % (11.7-14.2); RDW Standard Deviation 52.2 fL (35.1-46.3); Red Blood Cell Count 2.68 M/mm3 (4.30-5.90)
[2022-02-24 03:57] LABS: Albumin, Blood 2.7 g/dL (3.4-5.0); Anion Gap 8 mmol/L (6-16); Blood Urea Nitrogen 25 mg/dL (8-24); CO2, Blood 22 mmol/L (21-32); Calcium, Blood 8.1 mg/dL (8.5-10.1); Chloride, Blood 113 mmol/L (98-108); Creatinine, Blood 1.04 mg/dL (0.60-1.20); Glomerular Filtration Rate 75 (60-); Glucose, Blood 142 mg/dL (70-99); Magnesium, Blood 1.9 mg/dL (1.6-2.4); Potassium, Blood 3.6 mmol/L (3.5-5.5); Sodium, Blood 143 mmol/L (136-145)
--- NOTE | 2022-02-24 06:17 | NUR ---
SHIFT SUMMARY; AOX3, ABLE TO MAKE NEEDS KNOWN. USES CALL LIGHT APPROPRIATLY. DENIED ANY CHEST PAIN, DISCOMFORT OTHER THEN A HEADACHE. LS CLEAR, NO SOB TO NOTE, SATS >95%. HR HAS BEEN SINUS WITH RATE 60-80. HE DID HAVE A FEW EPISODES OF IRREGULARITY NEVER SUSTAINED. BP MAP REMAINED >70. TROPONIN TRENDED UP HIGHEST 1199, LAST ONE WAS 890, RECENT DRAW STILL PENDING. BT ACTIVE, NO BM. TOLERATED CLEAR LIQUIDS. URINE OUTPUT ONLY 100CC ENTIRE SHIFT. H/H DID DROP BACK DOWN TO 8.1/25.3. NO OTHER CHANGES TO NOTE. CALL LIGHT IS IN REACH. PROTONIX AND NS CONTINUE TO INFUSE.
--- NOTE | 2022-02-24 08:48 | NUR ---
AM NOTE.... ASSUMED CARE AT 0700 THE PT IS A&Ox4. THE PT WAS ADMITTED FOR GI BLEED. THE PT CURRENTLY DENEIS ANY ABD OR CHEST PAIN AT THIS TIME. THE PT IS ON RA WITH O2 SATS >90% L/S CLEAR T/O DIM IN THE BASES RR IS 18. THE PT IS IN SR W/BBB IN THE 70'S THE PT'S BP IS STABLE. NO EDEMA IS NOTED ON ASSESSMENT. BT PRESENT AND HYPOACTIVE, ABD IS SOFT AND NONTENDER TO PALPATION. THE PT WAS UNABLE TO VOID ALL NOC SHIFT, THE NOC SHIFT RN DID A BLADDER SCAN THAT SHOWED >1000MLS OF URINE, THE PT WAS UNABLE TO VOID WHILE IN BED, THIS RN HELPED THE PT UP TO THE BSC, WHILE ON THE BSC THE PT WAS ABLE TO VOID 425MLS IN THE URINAL AND A LARGE AMOUNT ON THE FLOOR. THE PT ALSO HAD A MED-LARGE MAROON LIQUID STOOL, PROVIDER IS AWARE. POST VOID RESIDUAL BLADDER SCAN WAS DONE AND SHOWED 200-300MLS. WILL CONTINUE TO MONITOR.
[2022-02-24 11:23] LABS: BASOPHILS ABSOLUTE AUTO 0.07 K/mm3 (0.00-0.23); BASOPHILS PERCENT AUTO 1 % (0-2); EOSINOPHILS PERCENT AUTO 9 % (0-6); Hemoglobin 8.4 g/dL (13.5-17.5); IMMATURE GRAN ABSOLUTE AUTO 0.11 K/mm3 (0.00-0.10); IMMATURE GRAN PERCENT AUTO 1 % (0-1); LYMPHOCYTES ABSOLUTE AUTO 2.03 K/mm3 (0.84-5.20); LYMPHOCYTES PERCENT AUTO 26 % (21-46); MONOCYTES ABSOLUTE AUTO 0.48 K/mm3 (0.16-1.47); MONOCYTES PERCENT AUTO 6 % (4-13); Mean Corpuscular HGB 30.8 pg (26.0-34.0); Mean Corpuscular HGB Conc 32.3 g/dL (31.5-36.5); Mean Corpuscular Volume 95 fL (80-100); Mean Platelet Volume 8.8 fL (9.1-12.4); NEUTROPHILS PERCENT AUTO 56 % (41-73); Platelet Count 242 K/mm3 (150-400); RDW Coefficient Variation 15.1 % (11.7-14.2); RDW Standard Deviation 52.1 fL (35.1-46.3); Red Blood Cell Count 2.73 M/mm3 (4.30-5.90); White Blood Cell Count 7.69 K/mm3 (4.00-11.30)
--- NOTE | 2022-02-24 17:04 | NUR ---
SHIFT SUMMARY.... NO ACUTE NEGATIVE CHANGES NOTED THIS SHIFT. THE PT'S VS HAVE BEEN STABLE. THE PT HAS DENIED ANY CHEST PAIN/PRESSURE THIS SHIFT. THE PT HAS BEEN MEDICATED PER EMAR FOR A HEADACHE WITH MINIMAL IMPROVMENT PER THE PT. THE PT WORKED WITH PT/OT AND HAS BEEN UP IN THE CHAIR FOR LUNCH AND DINNER THIS SHIFT. THE PT HAS BEEN ABLE TO VOID WELL USING THE BSC AND HAD NOT HAD ANOTHER BM SINCE THIS AM. CALL LIGHT IN REACH WILL CONTINUE TO MONITOR UNTIL REPORT IS GIVEN TO ONCOMING RN.
--- NOTE | 2022-02-24 20:00 | NUR ---
ASSUMED CARE. REPORTS IMPROVEMENT IN HEADACHES T/O DAY SINCE HE RESTARTED HIS HOME MEDS. REPORTS PAIN IN RIGHT DUNCAN, HOT BLANKET GIVEN AND CALLED FOR LIDOCAIN PATCHES. HAS BEEN ABLE TO URINATE IN URINAL WITH ASSISANCE. VSS STABLE AND HOLDING. DID HAVE MARROON BM TODAY, NO OTHER STOOL SINCE THEN. TOLERATED DIET TODAY WITH NO NAUSEA. ICE WATER GIVEN. TROPONIN TRENDING DOWN. CALL LIGHT IN REACH. USES APPROPRIATLY.
--- NOTE | 2022-02-25 03:00 | NUR ---
C/O CHEST PAIN 12/03. BP 140/79, HR 63. sATS GOOD ON RA. REPEAT EKG PERFORMED. NO CHANGES FROM SLADE EKG. BY THE TIME IT WAS DONE THE CHEST PAIN RESOLVED.
[2022-02-25 03:58] LABS: BASOPHILS ABSOLUTE AUTO 0.06 K/mm3 (0.00-0.23); BASOPHILS PERCENT AUTO 1 % (0-2); EOSINOPHILS ABSOLUTE AUTO 0.69 K/mm3 (0.00-0.68); EOSINOPHILS PERCENT AUTO 10 % (0-6); Hematocrit 26.3 % (37.0-53.0); Hemoglobin 8.4 g/dL (13.5-17.5); IMMATURE GRAN ABSOLUTE AUTO 0.14 K/mm3 (0.00-0.10); IMMATURE GRAN PERCENT AUTO 2 % (0-1); LYMPHOCYTES ABSOLUTE AUTO 2.16 K/mm3 (0.84-5.20); LYMPHOCYTES PERCENT AUTO 31 % (21-46); MONOCYTES ABSOLUTE AUTO 0.47 K/mm3 (0.16-1.47); MONOCYTES PERCENT AUTO 7 % (4-13); Mean Corpuscular HGB 30.3 pg (26.0-34.0); Mean Corpuscular HGB Conc 31.9 g/dL (31.5-36.5); Mean Corpuscular Volume 95 fL (80-100); Mean Platelet Volume 8.9 fL (9.1-12.4); NEUTROPHILS ABSOLUTE AUTO 3.39 K/mm3 (1.96-9.15); NEUTROPHILS PERCENT AUTO 49 % (41-73); Platelet Count 266 K/mm3 (150-400); RDW Coefficient Variation 14.8 % (11.7-14.2); RDW Standard Deviation 51.1 fL (35.1-46.3); Red Blood Cell Count 2.77 M/mm3 (4.30-5.90); White Blood Cell Count 6.91 K/mm3 (4.00-11.30)
[2022-02-25 04:15] LABS: Albumin, Blood 2.8 g/dL (3.4-5.0); Anion Gap 5 mmol/L (6-16); Blood Urea Nitrogen 15 mg/dL (8-24); CO2, Blood 26 mmol/L (21-32); Calcium, Blood 8.5 mg/dL (8.5-10.1); Chloride, Blood 112 mmol/L (98-108); Creatinine, Blood 0.94 mg/dL (0.60-1.20); Glomerular Filtration Rate 85 (60-); Glucose, Blood 130 mg/dL (70-99); Magnesium, Blood 1.9 mg/dL (1.6-2.4); Phosphorus, Blood 3.3 mg/dL (2.5-4.9); Potassium, Blood 3.6 mmol/L (3.5-5.5); Sodium, Blood 143 mmol/L (136-145)
--- NOTE | 2022-02-25 04:56 | NUR ---
ASSISTED TO BSC, 1200 CC OF MARROON COLOR LIQUID STOOL WITH URINE MIX OBTAINED. DUE TO MIX WITH URINE WAS UNABLE TO SEND STOOL IT WAS ALL LIQUID WITH VERY FEW OF WHAT LOOKED LIKE BLOOD CLOTS. VERY WEAK AND UNSTEADY GETTING UP. LINEN WAS CHANGED. WEIGHT IS UNCHANGED FROM YESTERDAY.
--- NOTE | 2022-02-25 05:37 | NUR ---
SHIFT SUMMARY: Pt has remained stable t/o shift. VS WNL. Sinus irregularity episodes with occational PVC's. 1 episode of chest pain, with no changes to VS and EKG was same as previous. Chest pain resolved with in 10-15 minutes with no use of medications. Migraines still occuring and needed tylenol and fentanyl to manage. Did get up to BSC once with a 1200cc marroon liquid stool mixed with urine. Still unable to collect due to it being mixed. Did have a few what looked like blood clots. H/H improved slightly from yesterday. No nausea. No other changes noted this shift. will report to dayshift.
--- NOTE | 2022-02-25 15:30 | NUR ---
PT HAS BEEN STABLE T/O DAY. A/O X4. PT ABLE TO GET OOB FOR LUNCH WITH MINIMAL ONE PERSON ASSIST. DENIES CP TODAY, NO SOB, DIZZINESS OR N/V. PT HAD SM LIQUID BM THAT WAS BROWN WITH SOME MAROON. MD AWARE. PT CONTINUES ON PROTONIX GTT. DR. PELAYO NOT ON THIS WEEKEND. TROPONIN TRENDING DOWN PT TRANSFERED TO ROOM 343 VIA W/C, NO SIGN OF DISTRESS HE LEAVES.
--- NOTE | 2022-02-25 16:37 | NUR ---
PT ARRIVED TO MEDICAL FLOOR ACCOMPANIED BY JANUARY AND ICU MANAGER [place] VIA . AMBULATED TO MEDICAL BED. TELE CONIRMED WITH NOVEMBER Magaly., SINUS AT 67. JAMIL DENIES CHEST PAIN, DIZZINESS OR SOB. RECEIVED TYLENOL FOR C/O HEADACHE. PROTONIX DRIP RESTARTED AT 10MLS/HR. PT USES URINAL INDEPENDENTLY. DENIES NAUSEA, VOMITING. STATES HE IS TOLERATING PO INTAKE OF LIQUID DIET. CALL LIGHT WITHIN REACH. WILL CONTINUE TO MONITOR.
--- NOTE | 2022-02-25 18:49 | NUR ---
NO ACUTE CHANGES. CALL LIGHT IN HAND. PT DENIES CHEST PAIN, SOB. REPORTS MILD HEADACHE RATING PAIN 3/10, WHICH IS IMPROVED WITH TYLENOL. PT STATES THE HEADACHES OCCUR DAILY AND ARE CHRONIC.
--- NOTE | 2022-02-26 03:24 | NUR ---
TERRAZZO JOURNEYMAN SUMMARY PT CAME TO FLOOR FROM THE ICU YESTERDAY ON AM SHIFT. ALERT AND ORIENTED, HAS BEEN RESTING QUIETLY WITH FEW INTERRUTPIONS. BP AND HR MONITORED - TOLERATING MEDS WELL. IV PROTONIX INFUSING. NO NOTED S/S GI BLEEDING. DENIES CHEST PAIN. AFFECT CHEERFUL WHEN SPEAKING TO STAFF. VSS. CALL LIGHT IN REACH
[2022-02-26 05:41] LABS: BASOPHILS ABSOLUTE AUTO 0.11 K/mm3 (0.00-0.23); BASOPHILS PERCENT AUTO 1 % (0-2); EOSINOPHILS ABSOLUTE AUTO 0.55 K/mm3 (0.00-0.68); EOSINOPHILS PERCENT AUTO 7 % (0-6); Hematocrit 30.8 % (37.0-53.0); IMMATURE GRAN ABSOLUTE AUTO 0.43 K/mm3 (0.00-0.10); IMMATURE GRAN PERCENT AUTO 6 % (0-1); LYMPHOCYTES ABSOLUTE AUTO 1.75 K/mm3 (0.84-5.20); LYMPHOCYTES PERCENT AUTO 23 % (21-46); MONOCYTES ABSOLUTE AUTO 0.55 K/mm3 (0.16-1.47); MONOCYTES PERCENT AUTO 7 % (4-13); Mean Corpuscular HGB 30.3 pg (26.0-34.0); Mean Corpuscular HGB Conc 32.5 g/dL (31.5-36.5); Mean Corpuscular Volume 93 fL (80-100); Mean Platelet Volume 8.9 fL (9.1-12.4); NEUTROPHILS ABSOLUTE AUTO 4.39 K/mm3 (1.96-9.15); NEUTROPHILS PERCENT AUTO 56 % (41-73); NRBC ABSOLUTE 0.04 K/mm3 (0.00-0.02); NRBC Auto 0.5 /100 WBC (0.0-0.2); Platelet Count 326 K/mm3 (150-400); RDW Coefficient Variation 15.9 % (11.7-14.2); RDW Standard Deviation 51.6 fL (35.1-46.3); White Blood Cell Count 7.78 K/mm3 (4.00-11.30)
[2022-02-26 05:54] LABS: Albumin, Blood 3.1 g/dL (3.4-5.0); Anion Gap 7 mmol/L (6-16); Blood Urea Nitrogen 10 mg/dL (8-24); Bun/Creatinine Ratio 11.6 (12.0-20.0); CO2, Blood 25 mmol/L (21-32); Calcium, Blood 8.9 mg/dL (8.5-10.1); Chloride, Blood 111 mmol/L (98-108); Creatinine, Blood 0.86 mg/dL (0.60-1.20); Glomerular Filtration Rate 91 (60-); Glucose, Blood 130 mg/dL (70-99); Phosphorus, Blood 3.2 mg/dL (2.5-4.9); Potassium, Blood 3.7 mmol/L (3.5-5.5); Sodium, Blood 143 mmol/L (136-145)
--- NOTE | 2022-02-26 15:09 | NUR ---
SHIFT SUMMARY NO ACUTE CHANGES TO PRESENT THIS SHIFT. PT HAS BEEN VERY PLEASANT AND CO-OP WITH CARE. CALLS APPROPRIATELY FOR NEEDS. UP TO CHAIR FOR MEALS AND AFTER WORKING WITH PT/OT. DR GRAVES IN TO SEE PT AND DISCUSS PLAN OF CARE. IV ABX D/C'D AFTER THIS AM DOSING. TYLENOL GIVEN FOR C/O NEAL. PROTONIX DRIP D/C'D AND CHANGED TO BID. IN TO VISIT THIS AM. ABLE TO AMBULATE IN RM WITH P/T THIS AM. DENIES FURTHER NEEDS AT THIS TIME. CALL LT IN REACH.
--- NOTE | 2022-02-27 05:06 | NUR ---
SHIFT SUMMARY 76 YR M ADMITTED ON 02/22/22 FOR UPPER GI BLEED. FULL CODE. PT C/O WORSENING CHEST PAIN THIS SHIFT AND WAS GIVEN 1 NITRO @ 2047. THIS RESOLVED THE CHEST PAIN AND A SECOND NITRO WAS NOT NECESSAY. PT ALSO C/O NEAL AND GIVEN TYLENOL PER EMAR WHICH WAS EFFECTIVE. PT IS PLEASANT AND COOPERATIVE W/ CARE. HE CALLS APPROPRIATELY BEFORE GOING TO THE BATHROOM AND AMBULATES INDEPENDANTLY.
[2022-02-27 05:56] LABS: Mean Corpuscular HGB 30.1 pg (26.0-34.0); Mean Corpuscular HGB Conc 32.3 g/dL (31.5-36.5); Mean Corpuscular Volume 93 fL (80-100); Mean Platelet Volume 9.1 fL (9.1-12.4); NRBC ABSOLUTE 0.05 K/mm3 (0.00-0.02); NRBC Auto 0.6 /100 WBC (0.0-0.2); Platelet Count 367 K/mm3 (150-400); RDW Coefficient Variation 15.9 % (11.7-14.2); Red Blood Cell Count 3.32 M/mm3 (4.30-5.90); White Blood Cell Count 7.97 K/mm3 (4.00-11.30)
[2022-02-27 06:09] LABS: Anion Gap 8 mmol/L (6-16); Blood Urea Nitrogen 10 mg/dL (8-24); Bun/Creatinine Ratio 10.9 (12.0-20.0); CO2, Blood 23 mmol/L (21-32); Calcium, Blood 9.1 mg/dL (8.5-10.1); Chloride, Blood 112 mmol/L (98-108); Creatinine, Blood 0.92 mg/dL (0.60-1.20); Glomerular Filtration Rate 87 (60-); Glucose, Blood 118 mg/dL (70-99); Magnesium, Blood 1.8 mg/dL (1.6-2.4); Phosphorus, Blood 3.6 mg/dL (2.5-4.9); Potassium, Blood 3.9 mmol/L (3.5-5.5); Sodium, Blood 143 mmol/L (136-145)
[2022-02-27 06:22] LABS: BAND PERCENT MAN 1 % (0-8); BASOPHILS PERCENT MAN 0 % (0-2); EOSINOPHILS ABSOLUTE MAN 0.71 K/mm3 (0.00-0.68); EOSINOPHILS PERCENT MAN 9 % (0-6); LYMPHOCYTES ABSOLUTE MAN 2.15 K/mm3 (0.84-5.20); LYMPHOCYTES PERCENT MAN 27 % (21-46); MONOCYTES ABSOLUTE MAN 0.23 K/mm3 (0.16-1.47); MONOCYTES PERCENT MAN 3 % (4-13); MYELOCYTE ABSOLUTE MAN 0.15 K/mm3 (0.00-0.00); MYELOCYTE PERCENT MAN 2 % (0-0); SEG NEUTROPHILS PERCENT MAN 58 % (41-73); TOTAL CELLS COUNTED 100
--- NOTE | 2022-02-27 14:31 | NUR ---
SHIFT SUMMARY PT RESTING QUIETLY AT START OF SHIFT. AT BS WAITING FOR PT TO WAKE. WOKE EASILY FOR CARE. UP TO BTHRM WITH FWW AND 1P SBA. LATER C/O NEAL RELATED TO NITRO GIVEN DURING THE NIGHT. TYLENOL GIVEN; PT REPORTED IT EFFECTIVE. NEW DIET ORDERS PLACED BEFORE BREAKFAST. PT VERY GRATEFUL AND TOLERATED WELL. PT CONTINUES TO REPORT NO FURTHER EPISODES OF BLEEDING. SR ON TELE. DR GRAVES IN TO SEE PT AND DISCUSS PLAN OF CARE. PT REMAINS STABLE AND IS TO D/C TO HOME IN AM. DENIES FURTHER NEEDS AT THIS TIME. CALL LT IN REACH.
--- NOTE | 2022-02-28 04:21 | NUR ---
SHIFT SUMMARY PT SLEPT OFF AND ON THROUGHOUT THE NIGHT. GOT UP TO CHAIR TO WATCH TELEVISION DURING THE NIGHT ONCE. PT IS PLEASANT AND COMPLAINED OF A HEADACHE. PT MEDICATED PER EMAR AND STATED THAT HE FELT MUCH BETTER. NO COMPLAINTS AT THIS TIME. CALL LIGHT IS WITHIN PT REACH.
[2022-02-28 05:19] LABS: Hematocrit 30.4 % (37.0-53.0); Mean Corpuscular HGB 30.5 pg (26.0-34.0); Mean Corpuscular HGB Conc 32.9 g/dL (31.5-36.5); Mean Corpuscular Volume 93 fL (80-100); Mean Platelet Volume 8.7 fL (9.1-12.4); NRBC ABSOLUTE 0.02 K/mm3 (0.00-0.02); NRBC Auto 0.3 /100 WBC (0.0-0.2); Platelet Count 380 K/mm3 (150-400); RDW Coefficient Variation 15.9 % (11.7-14.2); RDW Standard Deviation 51.5 fL (35.1-46.3); Red Blood Cell Count 3.28 M/mm3 (4.30-5.90)
[2022-02-28 05:42] LABS: Albumin, Blood 3.1 g/dL (3.4-5.0); Anion Gap 8 mmol/L (6-16); Blood Urea Nitrogen 15 mg/dL (8-24); Bun/Creatinine Ratio 16.2 (12.0-20.0); CO2, Blood 22 mmol/L (21-32); Calcium, Blood 9.3 mg/dL (8.5-10.1); Chloride, Blood 109 mmol/L (98-108); Creatinine, Blood 0.93 mg/dL (0.60-1.20); Glomerular Filtration Rate 86 (60-); Glucose, Blood 124 mg/dL (70-99); Magnesium, Blood 2.1 mg/dL (1.6-2.4); Potassium, Blood 3.8 mmol/L (3.5-5.5); Sodium, Blood 139 mmol/L (136-145)
[2022-02-28 05:54] LABS: BAND PERCENT MAN 4 % (0-8); BASOPHILS PERCENT MAN 0 % (0-2); EOSINOPHILS ABSOLUTE MAN 0.71 K/mm3 (0.00-0.68); EOSINOPHILS PERCENT MAN 9 % (0-6); LYMPHOCYTES ABSOLUTE MAN 2.37 K/mm3 (0.84-5.20); LYMPHOCYTES PERCENT MAN 30 % (21-46); MONOCYTES ABSOLUTE MAN 0.31 K/mm3 (0.16-1.47); MONOCYTES PERCENT MAN 4 % (4-13); MYELOCYTE ABSOLUTE MAN 0.07 K/mm3 (0.00-0.00); MYELOCYTE PERCENT MAN 1 % (0-0); NEUTROPHILS ABSOLUTE MAN 4.42 K/mm3 (1.96-9.15); SEG NEUTROPHILS PERCENT MAN 52 % (41-73); TOTAL CELLS COUNTED 100
[2022-02-28] MEDS ORDERED: PANT40 PO (10:14)
[2022-02-28] MEDS ORDERED: Isosorbide Mono30 MG PO (10:14)
--- NOTE | 2022-02-28 12:20 | NUR ---
DISCHARGE SUMMARY PT A/O X4; PLEASANT AND COOPERATIVE WITH CARE. ADMITTED FOR UPPER GI BLEED. NO BLOODY STOOLS RECENTLY. PT HAS GENERALIZED WEAKNESS AND WORKS WITH PT/OT. PT TO DC HOME WITH HOME HEALTH. PT DC'D HOME WITH . HOME MEDICATIONS RETURNED TO PATIENT.
== END 2022-02-28 12:21 | disposition home health service (06) | DRG 377 ==
LOC: ER 20:57 → MEDS 02-22 00:08 → ICUW 02-22 07:48 → MEDS 02-25 15:26
PROVIDERS: Family Medicine; Hospitalist; Student in an Organized Health Care Education/Training Program; ADMIT Internal Medicine
PROC: 3E0G8GC Introduction of Other Therapeutic Substance into Upper GI, Via Natural or Artificial Opening Endoscopic (ICD-10-PCS; 2022-02-22)
PROC: 0W3P8ZZ Control Bleeding in Gastrointestinal Tract, Via Natural or Artificial Opening Endoscopic (ICD-10-PCS; principal; 2022-02-22 10:30)
PROC: 30233N1 Transfusion of Nonautologous Red Blood Cells into Peripheral Vein, Percutaneous Approach (ICD-10-PCS; 2022-02-22 10:30)
PROC: 30233N1 Transfusion of Nonautologous Red Blood Cells into Peripheral Vein, Percutaneous Approach (ICD-10-PCS; 2022-02-25)
DX: K26.0 Acute duodenal ulcer with hemorrhage (principal); I21.A1 Myocardial infarction type 2; D62 Acute posthemorrhagic anemia; I10 Essential (primary) hypertension; E78.5 Hyperlipidemia, unspecified; I95.9 Hypotension, unspecified; E11.51 Type 2 diabetes mellitus with diabetic peripheral angiopathy without gangrene; G43.909 Migraine, unspecified, not intractable, without status migrainosus; F31.9 Bipolar disorder, unspecified; K20.90 Esophagitis, unspecified without bleeding; N40.0 Benign prostatic hyperplasia without lower urinary tract symptoms; D72.829 Elevated white blood cell count, unspecified; Z90.49 Acquired absence of other specified parts of digestive tract; Z90.89 Acquired absence of other organs; Z79.84 Long term (current) use of oral hypoglycemic drugs; Z79.899 Other long term (current) drug therapy
CPT/HCPCS: 31500; 36415; 36430; 71045; 80053; 80069; 82272; 82947; 83735; 83880; 84100; 84484; 85014; 85018; 85025; 86850; 86900; 86901; 86923; 87040; 87338; 93005; 93010; 93306; 94002; 96361; 96374; 96375; 96376; 97110; 97116; 97162; 97165; 97530; 97535; 99285-25; A9270; C1751; C9113; G0378; J0171; J0696; J1430; J1956; J2250; J2405; J2704; J2765; J3010; J3475; J3480; J7030; J7040; J7050; J7060; J7120; P9016

== ENCOUNTER 2022-05-28 06:45 | Day surgery (SDC) | payer MEDICARE, BC ==
[~2022-05-28] VITALS: Ht 177.8 cm; Wt 101.6 kg
[~2022-05-28 06:45] MED LIST changes: +Isosorbide Mono30 MG PO; +METO25ER PO; +PANT40 PO; +VRAYLAR3 MG PO
== END 2022-05-28 09:09 | disposition home or self-care (01) ==
LOC: ORSCSDS 06:45
PROVIDERS: Student in an Organized Health Care Education/Training Program
PROC: 0DB78ZX Excision of Stomach, Pylorus, Via Natural or Artificial Opening Endoscopic, Diagnostic (ICD-10-PCS; principal; 2022-05-28 08:00)
PROC: 0DB98ZX Excision of Duodenum, Via Natural or Artificial Opening Endoscopic, Diagnostic (ICD-10-PCS; principal; 2022-05-28 08:00)
DX: K92.2 Gastrointestinal hemorrhage, unspecified (principal); K29.70 Gastritis, unspecified, without bleeding; K20.90 Esophagitis, unspecified without bleeding; I10 Essential (primary) hypertension; G47.33 Obstructive sleep apnea (adult) (pediatric); E11.9 Type 2 diabetes mellitus without complications; Z79.84 Long term (current) use of oral hypoglycemic drugs; Z79.899 Other long term (current) drug therapy
CPT/HCPCS: 82947; 88305; 88342; J0330; J0461; J2405; J2704; J7120

== ENCOUNTER 2022-06-03 07:47 | Emergency (ER) | payer MEDICARE, BC ==
[~2022-06-03] VITALS: Ht 177.8 cm; Wt 99.8 kg
== END 2022-06-03 08:35 | disposition home or self-care (01) ==
LOC: ER 07:47
DX: R19.7 Diarrhea, unspecified (principal); E11.9 Type 2 diabetes mellitus without complications; I10 Essential (primary) hypertension; E78.5 Hyperlipidemia, unspecified; Z79.899 Other long term (current) drug therapy; Z79.84 Long term (current) use of oral hypoglycemic drugs
CPT/HCPCS: 99284

== ENCOUNTER 2022-09-11 10:17 | Observation (INO) | payer MEDICARE, BC ==
[~2022-09-11] VITALS: Ht 177.8 cm; Wt 103.3 kg
[~2022-09-11 10:17] MED LIST changes: +ASPI81CH PO; -LATANOPROST2.5 M1 BOTHEYES
[2022-09-11 11:10] LABS: BASOPHILS ABSOLUTE AUTO 0.06 K/mm3 (0.00-0.23); BASOPHILS PERCENT AUTO 1 % (0-2); EOSINOPHILS ABSOLUTE AUTO 1.02 K/mm3 (0.00-0.68); EOSINOPHILS PERCENT AUTO 11 % (0-6); Hematocrit 49.1 % (37.0-53.0); Hemoglobin 16.3 g/dL (13.5-17.5); IMMATURE GRAN ABSOLUTE AUTO 0.05 K/mm3 (0.00-0.10); IMMATURE GRAN PERCENT AUTO 1 % (0-1); LYMPHOCYTES ABSOLUTE AUTO 1.72 K/mm3 (0.84-5.20); LYMPHOCYTES PERCENT AUTO 19 % (21-46); MONOCYTES ABSOLUTE AUTO 0.69 K/mm3 (0.16-1.47); MONOCYTES PERCENT AUTO 8 % (4-13); Mean Corpuscular HGB Conc 33.2 g/dL (31.5-36.5); Mean Corpuscular Volume 90 fL (80-100); Mean Platelet Volume 8.6 fL (9.1-12.4); NEUTROPHILS ABSOLUTE AUTO 5.56 K/mm3 (1.96-9.15); NEUTROPHILS PERCENT AUTO 61 % (41-73); Platelet Count 249 K/mm3 (150-400); RDW Coefficient Variation 15.7 % (11.7-14.2); Red Blood Cell Count 5.43 M/mm3 (4.30-5.90)
[2022-09-11 13:01] LABS: Albumin, Blood 3.8 g/dL (3.4-5.0); Albumin/Globulin Ratio 0.9 (0.8-1.8); Bilirubin, Total 0.3 mg/dL (0.1-1.0); Bun/Creatinine Ratio 16.7 (12.0-20.0); Creatinine, Blood 0.96 mg/dL (0.60-1.20); Globulin, Blood 4.1 g/dL (2.2-4.0); Potassium, Blood 4.1 mmol/L (3.5-5.5); Total Protein, Blood 7.9 g/dL (6.4-8.2)
--- NOTE | 2022-09-11 16:59 | NUR ---
PT ADMITTED TO ROOM 360 AT 1615 FROM ED, A/O X4, R FACIAL DROOP, STRONG GEOSPATIAL TECHNOLOGIST, L SLIGHTLY WEAKER THAN R. ORIENTED TO ROOM SET UP AND SAFETY.
[2022-09-11] MEDS ORDERED: AMOX875 PO (17:58)
[2022-09-11] MEDS ORDERED: SULTRIDS PO (17:59)
--- NOTE | 2022-09-11 18:02 | NUR ---
SUMMARY- PT A/O X4. NEURO- SIGNIFICANT R FACIAL DROOP. SLIGHT L SIDE WEAKNESS BOTH ARM AND LEG AND SLIGHT DECREASE IN COORDINATION ON THAT SIDE. SPEECH CLEAR. SWALLOW INTACT. PEARLA. TOLERATING FOOD AND FLUIDS. AMBULATED TO BATHROOM SBA. STATES HE IS NOT AT BASELINE BUT IMPROVING FROM THIS AM.
--- NOTE | 2022-09-12 03:50 | NUR ---
SHIFT SUMMARY NO OVERNIGHT EVENTS. CONTINUE Q 4 NEURO CHECKS. L SIDE SLIGHTLY WEAKER THEN R, PER PT THAT HAS BEEN HIS BASELINE FOR SOME TIME. PT DOES HAVE R FACIAL DROOP. PERRLA INTACT. NO SLURRED SPEECH, NO DIFFICULTY SWALLOWING. PT AMBULATING TO BATHROOM SBA. CYST ON L BUTTOCK BLEEDING, CLEANSED AND PLACED BANDAID. REPORTS HEADACHE, ADMINISTERED PRN TYLENOL. PT ORIENTED X4, ABLE TO MAKE NEEDS KNOWN, CALL LIGHT IN REACH.
[2022-09-12 05:04] LABS: BASOPHILS ABSOLUTE AUTO 0.08 K/mm3 (0.00-0.23); BASOPHILS PERCENT AUTO 1 % (0-2); EOSINOPHILS ABSOLUTE AUTO 1.22 K/mm3 (0.00-0.68); EOSINOPHILS PERCENT AUTO 12 % (0-6); Hematocrit 46.2 % (37.0-53.0); Hemoglobin 15.7 g/dL (13.5-17.5); IMMATURE GRAN ABSOLUTE AUTO 0.05 K/mm3 (0.00-0.10); IMMATURE GRAN PERCENT AUTO 1 % (0-1); LYMPHOCYTES PERCENT AUTO 25 % (21-46); MONOCYTES PERCENT AUTO 8 % (4-13); Mean Corpuscular Volume 88 fL (80-100); Mean Platelet Volume 8.5 fL (9.1-12.4); NEUTROPHILS ABSOLUTE AUTO 5.51 K/mm3 (1.96-9.15); NEUTROPHILS PERCENT AUTO 54 % (41-73); Platelet Count 237 K/mm3 (150-400); RDW Coefficient Variation 15.1 % (11.7-14.2); RDW Standard Deviation 45.2 fL (35.1-46.3); Red Blood Cell Count 5.23 M/mm3 (4.30-5.90); White Blood Cell Count 10.16 K/mm3 (4.00-11.30)
[2022-09-12 05:34] LABS: Albumin, Blood 3.5 g/dL (3.4-5.0); Albumin/Globulin Ratio 0.9 (0.8-1.8); Bilirubin, Total 0.5 mg/dL (0.1-1.0); Calcium, Blood 9.5 mg/dL (8.5-10.1); Creatinine, Blood 0.94 mg/dL (0.60-1.20); Potassium, Blood 3.7 mmol/L (3.5-5.5); Total Protein, Blood 7.5 g/dL (6.4-8.2)
--- NOTE | 2022-09-12 18:34 | NUR ---
DISCHARGE INSTRUCTIONS COMPLETED AND DISCUSSED WITH PT AND EXPRESSING UNDERSTANDING. TO [facility] VIA W/C.
== END 2022-09-12 18:12 | disposition home or self-care (01) ==
LOC: ER 10:17 → MEDS 10:18
PROVIDERS: Physician Assistant; ADMIT Internal Medicine
DX: I63.9 Cerebral infarction, unspecified (principal); R47.81 Slurred speech; R29.810 Facial weakness; G81.94 Hemiplegia, unspecified affecting left nondominant side; F31.9 Bipolar disorder, unspecified; N40.0 Benign prostatic hyperplasia without lower urinary tract symptoms; E11.9 Type 2 diabetes mellitus without complications; I25.10 Atherosclerotic heart disease of native coronary artery without angina pectoris; I67.1 Cerebral aneurysm, nonruptured; E78.5 Hyperlipidemia, unspecified; Z79.84 Long term (current) use of oral hypoglycemic drugs; Z95.1 Presence of aortocoronary bypass graft; Z87.891 Personal history of nicotine dependence
CPT/HCPCS: 36415; 70450; 70496; 70498; 80053; 82947; 85025; 92610; 93005; 93010; 93306; 97112-CQ; 97161; 97165; A9270; G0378; Q9967

== ENCOUNTER 2022-10-02 20:46 | Emergency (ER) | payer MEDICARE, BC ==
[~2022-10-02] VITALS: Ht 177.8 cm; Wt 101.6 kg
[~2022-10-02 20:46] MED LIST changes: +AMOX875 PO; +SULTRIDS PO
[2022-10-02 22:30] LABS: BASOPHILS ABSOLUTE AUTO 0.11 K/mm3 (0.00-0.23); BASOPHILS PERCENT AUTO 1 % (0-2); EOSINOPHILS PERCENT AUTO 10 % (0-6); Hematocrit 31.5 % (37.0-53.0); Hemoglobin 10.3 g/dL (13.5-17.5); IMMATURE GRAN ABSOLUTE AUTO 0.55 K/mm3 (0.00-0.10); IMMATURE GRAN PERCENT AUTO 5 % (0-1); LYMPHOCYTES ABSOLUTE AUTO 2.28 K/mm3 (0.84-5.20); LYMPHOCYTES PERCENT AUTO 21 % (21-46); MONOCYTES ABSOLUTE AUTO 0.84 K/mm3 (0.16-1.47); MONOCYTES PERCENT AUTO 8 % (4-13); Mean Corpuscular HGB 30.6 pg (26.0-34.0); Mean Corpuscular HGB Conc 32.7 g/dL (31.5-36.5); Mean Corpuscular Volume 94 fL (80-100); Mean Platelet Volume 9.2 fL (9.1-12.4); NEUTROPHILS ABSOLUTE AUTO 5.75 K/mm3 (1.96-9.15); NEUTROPHILS PERCENT AUTO 54 % (41-73); NRBC ABSOLUTE 0.03 K/mm3 (0.00-0.02); NRBC Auto 0.3 /100 WBC (0.0-0.2); Platelet Count 346 K/mm3 (150-400); RDW Coefficient Variation 14.2 % (11.7-14.2); RDW Standard Deviation 47.1 fL (35.1-46.3); Red Blood Cell Count 3.37 M/mm3 (4.30-5.90); White Blood Cell Count 10.63 K/mm3 (4.00-11.30)
[2022-10-02 22:42] LABS: Albumin, Blood 2.7 g/dL (3.4-5.0); Albumin/Globulin Ratio 0.7 (0.8-1.8); Bilirubin, Total 0.3 mg/dL (0.1-1.0); Bun/Creatinine Ratio 31.6 (12.0-20.0); Calcium, Blood 8.8 mg/dL (8.5-10.1); Creatinine, Blood 0.76 mg/dL (0.60-1.20); Globulin, Blood 3.8 g/dL (2.2-4.0); Total Protein, Blood 6.5 g/dL (6.4-8.2)
[2022-10-03 01:29] LABS: Adenovirus F 40/41 Not Detected (NOT DETECT); Astrovirus Not Detected (NOT DETECT); Campylobacter Sp Not Detected (NOT DETECT); Cryptosporidium Not Detected (NOT DETECT); Cyclospora Cayetanensis Not Detected (NOT DETECT); E. Coli O157 Not Detected (NOT DETECT); Entamoeba Histolytica Not Detected (NOT DETECT); Enteroaggregative E. coli-EAEC Not Detected (NOT DETECT); Enteropathogenic E. coli-EPEC Not Detected (NOT DETECT); Enterotoxigenic E. coli-ETEC Not Detected (NOT DETECT); Giardia Lamblia Not Detected (NOT DETECT); Norovirus GI/GII Not Detected (NOT DETECT); Plesiomonas Shigelloides Not Detected (NOT DETECT); Rotavirus A Not Detected (NOT DETECT); Salmonella Sp Not Detected (NOT DETECT); Sapovirus Not Detected (NOT DETECT); Shiga Toxin-prod E. coli-STEC Not Detected (NOT DETECT); Shigella/Enteroin E. coli-EIEC Not Detected (NOT DETECT); Vibrio Cholerae Not Detected (NOT DETECT); Vibrio Sp Not Detected (NOT DETECT); Yersinia Enterocolitica Not Detected (NOT DETECT)
== END 2022-10-03 01:59 | disposition home or self-care (01) ==
LOC: ER 20:46
PROVIDERS: Student in an Organized Health Care Education/Training Program
DX: R19.7 Diarrhea, unspecified (principal); K62.89 Other specified diseases of anus and rectum; D64.9 Anemia, unspecified; E11.9 Type 2 diabetes mellitus without complications; I10 Essential (primary) hypertension; E78.5 Hyperlipidemia, unspecified; Z87.891 Personal history of nicotine dependence; Z79.84 Long term (current) use of oral hypoglycemic drugs; Z79.899 Other long term (current) drug therapy; Z79.82 Long term (current) use of aspirin
CPT/HCPCS: 36415; 74177; 80053; 83605; 83690; 85025; 87507; 99284-25; A9270; Q9967

== ENCOUNTER 2024-06-24 07:37 | Day surgery (SDC) | payer MEDICARE, BC ==
[2024-06-24] VITALS (7 sets, daily range): BP systolic 120–145; BP diastolic 72–78
[~2024-06-24] VITALS: Ht 177.8 cm; Wt 102.5 kg
[~2024-06-24 07:37] MED LIST changes: +Amiodarone HCl200 MG; +JARDIANCE25 MG PO; +LOSA25 PO; +NITR.4SL SL; +OZEMPIC2 MG/0.75; +PSYLLIUM HUSK; +VASCEPA1 G1 PO; +[UNRECOGNIZED DRUG - OTHER]
[2024-06-24] MEDS ORDERED: NS 100 ML IV ONE (09:07)
[2024-06-24] MEDS ORDERED: NS 250 ML IV ONE (09:07)
[2024-06-24] MEDS ORDERED: NS 1,000 ML IV ONE ×2 (09:08→09:27)
[2024-06-24] MEDS ORDERED: Heparin Sodium 1000 Units/ML 10ML MDV ONE (09:08)
[2024-06-24] MEDS ORDERED: Midazolam HCl 1MG / ML 2ML Vial ONE (09:26)
[2024-06-24] MEDS ORDERED: FentaNYL Citrate 50 MCG/ML 2 ML Injection ONE (09:27)
--- NOTE | 2024-06-24 12:58 | NUR ---
PT AMB TO BATHROOM /C SBA. TOLERATED WELL. NEG BLEEDING OR SWELLING R GROIN AREA.
--- NOTE | 2024-06-24 13:26 | NUR ---
PT AND VERBALIZED UNDERSTANDING OF WRITTEN AND VERBAL D/C INST. IV REMOVED. PT TAKEN OUT OF THE HRT CENTER VIA W/C.
== END 2024-06-24 14:12 | disposition home or self-care (01) ==
LOC: MHTC 07:37
DX: E11.51 Type 2 diabetes mellitus with diabetic peripheral angiopathy without gangrene (principal); I10 Essential (primary) hypertension; G47.33 Obstructive sleep apnea (adult) (pediatric); F31.9 Bipolar disorder, unspecified; E78.5 Hyperlipidemia, unspecified; Z87.891 Personal history of nicotine dependence; Z79.82 Long term (current) use of aspirin; Z79.84 Long term (current) use of oral hypoglycemic drugs; Z79.899 Other long term (current) drug therapy; Z90.49 Acquired absence of other specified parts of digestive tract
CPT/HCPCS: 36200; 75625; 75716; 75774; 76937; 99152; 99153; C1760; C1769; C1887; C1894; J1644; J2250; J3010; J7030; J7050; Q9967